=== PATIENT | male | born 1975 | race Two or more races ===

== ENCOUNTER 2023-03-16 02:08 | Emergency (ER) | payer OTHER ==
[~2023-03-16] VITALS: Ht 172.7 cm; Wt 81.6 kg
[2023-03-16] MEDS ORDERED: AZOR 10-20 MG1 EACH (02:29)
[2023-03-16] MEDS ORDERED: NON-ASPIRIN EX500 M1 (02:30)
[2023-03-16] MEDS ORDERED: HYDROCHLOROTHIA25 MG (02:31)
[2023-03-16] MEDS ORDERED: AMOX-CLAV 875-1 EAC1 PO (04:03)
== END 2023-03-16 04:13 ==
LOC: ER 02:08
DX: Z04.1 Encounter for examination and observation following transport accident (principal)